=== PATIENT | female | born 1965 | race Caucasian/White ===

== ENCOUNTER 2023-06-10 08:22 | Emergency (ER) | payer OTHER ==
--- NOTE | 2023-06-10 08:34 | ED Physician Documentation ---
PD HPI ABD PAIN - Stated complaint Stated Complaint: ABD PX - Chief complaint Chief Complaint: Abd Pain - History obtained from History obtained from: Patient - History of Present Illness Timing - onset: How many hours ago (awoke few hours ago with lower abd pain and cramping. Seems both left and right, but more to left.) Timing - duration: Hours Timing - details: Gradual onset, Still present Quality: Cramping, Aching Location: Suprapubic, LLQ Radiation: Lower back. No: Left flank, Right flank Improved by: Laying still Worsened by: Moving, Palpation. No: Breathing Associated symptoms: Nausea, Loss of appetite. No: Fever, Vomiting, Diarrhea, Constipation, Dysuria, Hematuria Similar symptoms before: Has not had sx before Recently seen: Not recently seen Review of Systems Constitutional: denies: Fever, Chills, Myalgias Nose: denies: Rhinorrhea / runny nose, Congestion Throat: denies: Sore throat Respiratory: denies: Cough GI: reports: Abdominal Pain, Nausea. denies: Vomiting, Constipation, Diarrhea : denies: Dysuria, Frequency PD PAST MEDICAL HISTORY - Past Medical History Cardiovascular: None Respiratory: None Neuro: None Endocrine/Autoimmune: None - Past Surgical History Past Surgical History: No - Present Medications Home Medications: Ambulatory Orders Medication Instructions Recorded Confirmed Ciprofloxacin HCl [Cipro] 500 mg PO BID #14 tablet 06/10/23 Gabapentin [Neurontin] 300 mg PO DAILY 06/10/23 06/10/23 HYDROcod/ACETAM 5/325 [[place] 5/325] 1 ea PO Q6H PRN #12 tablet 06/10/23 Metoprolol Succinate [Toprol Xl] 25 mg PO DAILY 06/10/23 06/10/23 Ondansetron Odt [Zofran] 4 mg TL Q6H PRN #10 tablet 06/10/23 SUMAtriptan [Imitrex] 50 mg PO DAILY 06/10/23 06/10/23 - Allergies Allergies/Adverse Reactions: Allergies Allergy/AdvReac Type Severity Reaction Status Date / Time Penicillins Allergy Intermediate Unknown Verified 06/10/23 08:34 PD ED PE NORMAL - Vitals Vital signs reviewed: Yes - General General: Alert and oriented X 3, Well developed/nourished, Other (appears uncomfortable due to lower abd pain. ) - Cardiac Cardiac: RRR, No murmur - Respiratory Respiratory: Clear bilaterally - Abdomen Abdomen: Normal bowel sounds, Soft, Non distended, No organomegaly, Other (She is tender in the lower abdomen both periumbilical and left lower. Minimally tender in the right. There is some guarding in the left lower. Mild percussion tenderness. No referred from the upper abdomen.) - Female Female : Deferred - Rectal Rectal: Deferred - Back Back: No CVA TTP - Derm Derm: Normal color, Warm and dry - Neuro Neuro: Alert and oriented X 3, No motor deficit, Normal speech Results - Vitals Vitals: Vital Signs - 24 hr 06/10/23 06/10/23 06/10/23 08:26 10:32 11:05 Temperature 36.4 C L Heart Rate 66 60 64 Respiratory 16 14 Rate Blood Pressure 101/54 L 111/68 111/68 O2 Saturation 100 100 98 Oxygen O2 Source Room air - Labs Labs: Laboratory Tests 06/10/23 06/10/23 06/10/23 08:51 08:51 09:21 WBC 8.9 RBC 4.63 Hgb 12.6 Hct 39.6 MCV 85.5 MCH 27.2 MCHC 31.8 L RDW 13.1 Plt Count 243 MPV 9.7 Neut # (Auto) 7.1 H Lymph # (Auto) 1.2 L [place] # (Auto) 0.5 Eos # (Auto) 0.0 Baso # (Auto) 0.1 Absolute Nucleated RBC 0.00 Nucleated RBC % 0.0 Sodium 138 Potassium 3.5 Chloride 102 Carbon Dioxide 30 Anion Gap 6.0 BUN 16 Creatinine 0.9 Estimated GFR (MDRD) 64 L Glucose 156 H Calcium 9.4 Total Bilirubin 0.5 AST 22 ALT 19 Alkaline Phosphatase 52 Total Protein 7.0 Albumin 4.3 Globulin 2.7 Albumin/Globulin Ratio 1.6 Lipase 13 Urine Color DARK YELLOW Urine Clarity CLEAR Urine pH 5.5 Ur Specific [place] 1.025 Urine Protein NEGATIVE Urine Glucose (UA) NEGATIVE Urine Ketones NEGATIVE Urine Occult Blood SMALL H Urine Nitrite NEGATIVE Urine Bilirubin NEGATIVE Urine Urobilinogen 0.2 (NORMAL) Ur Leukocyte Esterase NEGATIVE Urine RBC 0-5 Urine WBC 0-3 Ur Squamous Epith Cells RARE Squamous Urine Bacteria Few Ur Microscopic Review INDICATED Urine Culture Comments NOT INDICATED - Rads (name of study) abd/pelvic CT Relevant Findings:: Prelim report reviewed (A segment of sigmoid colon wall thickening focused around the diverticula. No abscess nor perforation. Consistent with uncomplicated diverticulitis), EMP independent interpretation of test PD Medical Decision Making - ED course Complexity details: reviewed results, considered differential (appendicitis, diverticulitits, kidney stone, ovarian cyst or torsion, etc. ), d/w patient Drug Therapy Requiring Monitoring for Toxicity: The patient was given IV fluids along with ondansetron for nausea and ketorolac anti-inflammatory. She was also given hydromorphone IV due to the degree of pain and discomfort. She did not have any untoward effects from that. Blood pressure and alertness remain good. She was on an oximeter during it. Subsequently she had a significant decrease in her pain. She did not require any redosing. Labs were good with a normal white count. Electrolytes and kidney function were within normal limits. The CT did show apparent sigmoid diverticulitis. No complications associated. I discussed with the patient the treatment approach of bland food and good hydration and anti-inflammatories and stool softener and see if that improves and if not then adding antibiotic after that. She is understanding of the treatment idea. Departure - Departure Disposition: Home, Self Care Clinical Impression: Lower abdominal pain, Diverticulitis Condition: Stable Record reviewed to determine appropriate education?: Yes Instructions: ED Diverticulitis Follow-Up: Tonya Suresh ARNP [Primary Care Provider] - Prescriptions: Ciprofloxacin HCl [Cipro] 500 mg PO BID #14 tablet HYDROcod/ACETAM 5/325 [[place] 5/325] 1 ea PO Q6H PRN #12 tablet PRN Reason: Pain Ondansetron Odt [Zofran] 4 mg TL Q6H PRN #10 tablet PRN Reason: Nausea / Vomiting Comments: Your CT scan shows an area of localized colon wall inflammation around a small outpouching called diverticula. This would look like an episode of diverticulitis. This would initially be treated with good hydration, soft diet food (easy to digest, less roughage) and perhaps a mild stool softener such as docusate/Colace daily for several days to week. This tries to reduce irritation in the wall of the colon. Add anti-inflammatory such as ibuprofen or naproxen 2 to 3 tablets twice daily over the next several days to a week. Add Tylenol every 4-6 hours as needed for pain. Add ondansetron if needed for nausea. Hydrocodone/acetaminophen if needed for worse pain. If this is not improving well over the next few days or you develop fevers, mucus or blood in the stool or more general pain, then you could start an antibiotic as well (ciprofloxacin). I sent prescriptions for these to [facility] in [place]. Recheck if not improved well over the next several days to week despite the above interventions and return to the ER if significantly worse despite medication. I am prescribing a short course of narcotic pain medication for you. These are potentially dangerous and addictive medications that should be used carefully. These medications may constipate you. Take an [id number] stool softener such as docusate twice daily with plenty of water while taking these medications. If you go 24 hours without a bowel movement, take [id number] MiraLAX, per package instructions. Do not drink or drive while taking these medications. If you received narcotic or sedating medications while in the emergency department do not drive for 24 hours. Store this medication in a safe, secure place and out of reach of children. It is a violation of federal law to give or sell this medication to another person or to use in a manner other than prescribed. The ED will not refill narcotic prescriptions, including prescriptions lost or stolen. You can dispose of unwanted medications at the [facility]'s office or at several pharmacies such as [facility]. Forms: PCP List Discharge Date/Time: 06/10/23 11:11
[2023-06-10] MEDS ORDERED: HYDROmorphone 1 MG/ML CARPUJECT IVP STA (08:49)
[2023-06-10] MEDS ORDERED: ONDANSETRON 4 MG/2 ML VIAL IVP STA (08:49)
[2023-06-10] MEDS ORDERED: KETOROLAC 15 MG/ML VIAL IVP STA (08:49)
[2023-06-10] MEDS ORDERED: SODIUM CHLORIDE 0.9% 1,000 ML IV STA (08:49)
[2023-06-10 09:00] LABS: BASOPHILS # (AUTO) 0.1 10^3/uL (0.0-0.1); BASOPHILS % (AUTO) 0.6 %; EOSINOPHILS % (AUTO) 0.1 %; HCT - HEMATOCRIT 39.6 % (37.0-47.0); HGB - HEMOGLOBIN 12.6 g/dL (12.0-16.0); LYMPHOCYTES # (AUTO) 1.2 10^3/uL (1.5-3.5); LYMPHOCYTES % (AUTO) 13.5 %; MEAN CORPUSCULAR HEMOGLOBIN 27.2 pg (27.0-31.0); MEAN CORPUSCULAR HGB CONC 31.8 g/dL (32.0-36.0); MEAN CORPUSCULAR VOLUME 85.5 fL (81.0-99.0); MEAN PLATELET VOLUME 9.7 fL (7.9-10.8); MONOCYTES # (AUTO) 0.5 10^3/uL (0.0-1.0); MONOCYTES % (AUTO) 5.1 %; NEUTROPHILS # (AUTO) 7.1 10^3/uL (1.5-6.6); NEUTROPHILS % (AUTO) 80.2 %; PLT - PLATELET COUNT 243 10^3/uL (130-450); RED BLOOD COUNT 4.63 10^6/uL (4.20-5.40); RED CELL DISTRIBUTION WIDTH 13.1 % (12.0-15.0); WHITE BLOOD COUNT 8.9 x10^3/uL (4.8-10.8)
[2023-06-10 09:18] LABS: ALBUMIN 4.3 g/dL (3.2-5.5); ALBUMIN/GLOBULIN RATIO 1.6 (1.0-2.2); BILIRUBIN,TOTAL 0.5 mg/dL (0.2-1.0); CALCIUM 9.4 mg/dL (8.5-10.3); CREATININE 0.9 mg/dL (0.6-1.3); POTASSIUM 3.5 mmol/L (3.5-4.5)
[2023-06-10 09:33] LABS: BILIRUBIN,URINE NEGATIVE (NEGATIVE); GLUCOSE, URINE (UA) NEGATIVE (NEGATIVE); KETONES,URINE (UA) NEGATIVE (NEGATIVE); LEUKOCYTE ESTERASE, URINE NEGATIVE (NEGATIVE); NITRITE,URINE NEGATIVE (NEGATIVE); OCCULT BLOOD,URINE SMALL (NEGATIVE); PH,URINE 5.5 PH (5.0-7.5); PROTEIN,URINE NEGATIVE (NEGATIVE); UROBILINOGEN,URINE 0.2 (NORMAL) E.U./dL (NORMAL)
[2023-06-10 09:34] LABS: CLARITY,URINE CLEAR (CLEAR)
[2023-06-10 09:56] LABS: BACTERIA,URINE Few /HPF (None Seen); RBC,URINE 0-5 /HPF (0-5); SQUAMOUS EPITHELIAL CELL,UR RARE Squamous (<= Few); WBC,URINE 0-3 /HPF (0-5)
--- NOTE | 2023-06-10 10:19 | CT Report ---
PROCEDURE: ABDOMEN/PELVIS WO INDICATIONS: mid/lower abd pain onset this AM TECHNIQUE: A CT scan of the abdomen and pelvis was performed without the use of intravenous contrast. Images we re recorded and evaluated at appropriate window settings. Reformats: coronal and sagittal. For radiat ion dose reduction, the following was used: automated exposure control, adjustment of mA and/or kV ac cording to patient size. COMPARISON: None. FINDINGS: Image quality: Good Lower chest: Basal scarring/atelectasis. No hiatal hernia. Solid organs: Liver appears unremarkable. Gallbladder is nondistended, without radiopaque gallstone. No pathologic biliary ductal dilation or pancreatic ductal dilation. No splenomegaly. No adrenal nodu les. No hydronephrosis. No calcified renal stones identified. Vessels and lymph nodes: No pathologic lymph nodes by size criteria. No abdominal aortic aneurysm. Bowel and peritoneum: No evidence of small bowel obstruction. There are few colonic diverticula. Nond ilated appendix. No intra-abdominal abscess or pathologic ascites. Minimal fat stranding images seen adjacent to the sigmoid colon adjacent to the diverticulum (5/33). Body wall: Tiny fat-containing umbilical hernia. Pelvis: Bladder is underdistended. Reproductive organs appear unremarkable limited CT evaluation. Bones: No acute or suspicious osseous finding. There are degenerative changes. IMPRESSION: Possible minimal inflammation associated with sigmoid uncomplicated diverticulitis. No abscess. No shaila wel obstruction or other acute abdominopelvic abnormality. Normal appendix. Reviewed by: Samson Riley MD on 06/10/2023 10:18 AM PDT Approved by: Samson Riley MD on 06/10/2023 10:18 AM PDT Station ID: [id number]
[2023-06-10 11:15] VITALS: BP 111/68; O2SAT 98
== END 2023-06-10 11:11 | disposition home or self-care (01) ==
LOC: ED 08:22
DX: K57.92 Diverticulitis of intestine, part unspecified, without perforation or abscess without bleeding (principal); Z79.899 Other long term (current) drug therapy
CPT/HCPCS: 36415; 74176; 80053; 81001; 83690; 85025; 96374; 96375; 99284; J1170; 81003; 87086

== ENCOUNTER 2023-09-04 08:15 | Outpatient (CLI) | payer OTHER ==
--- NOTE | 2023-09-04 11:47 | XRAY Report ---
PROCEDURE: Knee 3 View LT INDICATIONS: PAIN IN LEFT KNEE JOINT TECHNIQUE: 3 views of the knee(s) were acquired. COMPARISON: None. FINDINGS: Bones: No fractures or dislocations. No suspicious bony lesions. Tricompartmental joint space maricarmen rowing with associated osteophytosis. Soft tissues: Moderate knee joint effusion. No suspicious soft tissue calcifications or masses. IMPRESSION: No acute bony abnormality. Moderate knee joint effusion. Mild to moderate tricompartmental osteoarthritis. Kellgren-Loco scale of osteoarthritis: 2. Reviewed by: Jose R Howe on 09/04/2023 11:46 AM [facility] Approved by: Jose R Howe on 09/04/2023 11:46 AM PST Station ID: [id number]
== END 2023-09-04 08:16 | disposition home or self-care (01) ==
LOC: DI.S 08:15
PROVIDERS: ATTEND Nurse Practitioner Family
DX: M25.462 Effusion, left knee (principal); M17.12 Unilateral primary osteoarthritis, left knee